=== PATIENT | male | born 1990 | race Two or more races ===

== ENCOUNTER → 2016-02-21 | Day surgery (SDC) | payer MEDICAID ==
[~2016-02-21] MED LIST: IOPAMIDOL (ISOVUE-M 300) 15 ML VIAL IV ONE; TRIAMCINOLONE ACETONIDE 200 MG/5 ML MDV IM ONE
--- NOTE | 2016-02-21 17:51 | IR ---
Cervical Epidural Steroid Injection History: Interscapular pain radiating down right shoulder and arm, with eccentric rightward disk tmoy iation at C6-C7. Consent: Risks and benefits of the procedure were discussed in detail. Informed consent was obtained . The patient accepted risks of lack of therapeutic benefit, internal bleeding, infection, and accide ntal dural puncture. Medication: Local anesthetic, only, at the preference of the patient. Technique: With the patient prone, the back of the neck was prepped and draped in sterile fashion. 1% Xylocaine was used for local anesthetic. With multiplanar fluoroscopic guidance, a 20-gauge Tuohy n eedle was inserted into the back of the spinal canal via the C7-T1 interlaminar space. Epidural posit ion was confirmed with 2 mL of Isovue-M 300. Spot images were obtained before and after injection of 2 mL of Kenalog (80 mg) and 1 mL of preservative-free sterile saline. The patient tolerated the proce dure well and was allowed to leave the department. Epidurogram: Eccentric rightward epidural contrast extends from C6 through T2. Impression: Cervical epidural injection of long-acting steroid via C7-T1. - - - - - - - - - - - - - - - - - - - - - - - - - - - - - - - - - - - - - - - - - - - - (PQRS Measures: Current medications were listed in the medical record, including all known prescript ions, [id number] medications, herbal medications, and nutritional supplements. Tobacco Use: Th e patient was advised to stop. Prophylactic Antibiotic: Unnecessary. VTE Prophylaxis: Unnecessary.)
== END | disposition home or self-care (01) ==
LOC: FIMAGING 11:47
PROVIDERS: ATTEND Neurological Surgery
PROC: 3E0S33Z Introduction of Anti-inflammatory into Epidural Space, Percutaneous Approach (ICD-10-PCS; principal; 2016-02-21)
PROC: 3E0S3BZ Introduction of Anesthetic Agent into Epidural Space, Percutaneous Approach (ICD-10-PCS; principal; 2016-02-21)
DX: M54.12 Radiculopathy, cervical region (principal)
CPT/HCPCS: J3301; Q9967